=== PATIENT | male | born 1975 | race Native Hawaiian/Other Pacific Islander ===

== ENCOUNTER 2016-06-17 06:20 | Outpatient (CLI) | payer OTHER ==
[~2016-06-17 06:20] MED LIST: ENALAPRIL20 MG OR; HYDR-2748 PO; LAMISIL AT11 EX; LAMISIL250 MG OR; LOFIBRA160 MG OR; PRAV40TA PO; TESTOST CYP100 MG/ML IM
[2016-06-17 06:54] LABS: PLATELET COUNT 221 K/uL (142-355)
[2016-06-17 07:17] LABS: SODIUM 139 mmol/L (136-145)
== END 2016-06-17 19:04 | disposition home or self-care (01) ==
LOC: LABW 06:20
PROVIDERS: Family Medicine
DX: I10 Essential (primary) hypertension (principal); E78.4 Other hyperlipidemia; E66.8 Other obesity; Z83.3 Family history of diabetes mellitus; E55.9 Vitamin D deficiency, unspecified; R73.09 Other abnormal glucose
CPT/HCPCS: 36415; 80053; 80061; 81000; 82043; 82306; 82570; 83036; 84439; 84443; 85027